=== PATIENT | male | born 1950 | race Hispanic/Latino ===

== ENCOUNTER 2016-10-25 18:26 | Inpatient (IN) | payer MEDICARE ==
[2016-10-25 18:48] VITALS: BMI 30.8
[2016-10-25] MEDS ORDERED: Eptifibatide 0.75 mg/ml 75 MG/100 ML BOTTLE IV ONE (18:51)
[2016-10-25] MEDS ORDERED: Morphine 2 mg/ml ISec IVP STA (18:52)
[2016-10-25 19:01] LABS: ADD MANUAL DIFF? NO
[2016-10-25 19:05] LABS: BASO # 0.02 K/mm3 (0.0-2.0); BASO % 0.3 % (0.0-3.0); EOS # 0.1 (0.0-0.7); EOS % 1.1 % (1.5-5.0); GRAN # 4.99 (1.4-6.5); GRAN % 63.6 % (50.0-68.0); HEMATOCRIT 49.7 % (42.0-52.0); LYMPH # 2.1 (1.2-3.4); LYMPH % 26.5 % (22.0-35.0); MEAN CELL VOLUME 87.8 fL (80.0-105.0); MEAN CORPUSCULAR HEMOGLOBIN 32.3 pg (25.0-35.0); MEAN CORPUSCULAR HGB CONC 36.8 g/dl (31.0-37.0); MONO # 0.7 (0.1-0.6); MONO % 8.5 % (1.0-6.0); PLATELET COUNT 241 10^3/uL (120.0-450.0); RED CELL DISTRIBUTION WIDTH 12.9 % (11.5-14.5); WHITE BLOOD COUNT 7.9 10^3/ul (4.5-11.0)
[2016-10-25] MEDS ORDERED: Phenylephrine 10 mg/ml Inj ONE (19:05)
[2016-10-25] MEDS ORDERED: Lidocaine 2% Inj (20ml) ONE (19:05)
[2016-10-25] MEDS ORDERED: Midazolam 2 MG/2 ML VIAL ONE ×2 (19:06→19:28)
[2016-10-25] MEDS ORDERED: Iohexol 350mgl/ml 50 ML ONE (19:07)
[2016-10-25] MEDS ORDERED: Iodixanol 320 MG/ML 200 ML BOTTLE IV ONE (19:07)
[2016-10-25] MEDS ORDERED: Iodixanol 320 MG/ML 100 ML BOTTLE IV ONE (19:07)
[2016-10-25] MEDS ORDERED: Nitroglycerin 50mg in D5W 0 MG/0 ML BOTTLE IV ONE (19:07)
[2016-10-25 19:10] LABS: ALB/GLOB RATIO 1.2 (1.1-1.8); ALKALINE PHOSPHATASE 122 U/L (38-133); ALT/SGPT 131 U/L (7-56); AST/SGOT 66 U/L (15-59); BILIRUBIN,TOTAL 1.2 mg/dL (0.2-1.3); BLOOD UREA NITROGEN 16 mg/dL (7-21); CALCIUM 9.8 mg/dL (8.4-10.5); CARBON DIOXIDE 22 mmol/L (21-33); CHLORIDE 103 mmol/L (98-107); GFR AFRICAN-AMERICAN > 60; GLUCOSE,RANDOM 155 mg/dL (70-110); POTASSIUM 3.2 mmol/L (3.6-5.0); SODIUM 141 mmol/L (132-148); TOTAL PROTEIN 9.4 g/dL (5.8-8.3)
[2016-10-25 19:17] LABS: INR 0.99 (0.93-1.08)
--- NOTE | 2016-10-25 19:19 | ED PDOC ---
Arrival/HPI - General Chief Complaint: Chest Pain Time Seen by Provider: 10/25/16 18:49 Historian: Patient - History of Present Illness Narrative History of Present Illness (Text): 10/25/16 18:50 A 66 year old male, who denies any past cardiac history, presents to the emergency department complaining of substernal chest heaviness that began around 16:30 this afternoon. Patient describes heaviness as "someone is sitting on top of my chest." Patient reports he has some chest pain yesterday afternoon after eating a pizza, which he thought was do to indigestion. Pain went away after some time. He then noticed some chest tightness when he was walking, which went away when he stopped. Throughout the night patient says he was fine and did not have any chest pain. This morning patient went to clean his car and while doing so he began to feel chest tightness and shortness of breath. Patient pain went away once he stopped cleaning the car. Patient states chest tightness began again when going up to stairs but then went away again. He reports around 16:30 while sitting on the couch the pain returned again did not resolve. PMD: Dr. Hand 11/02/16 17:01 Time/Duration: 24 hours Symptom Onset: Sudden Symptom Course: Intermittent Quality: Tightness, Other (heaviness) Severity Level: 10 Activities at Onset: Rest, Light Context: Sitting, Exertion, Home Past Medical History - Provider Review Nursing Documentation Reviewed: Yes - Infectious Disease Hx of Infectious Diseases: None - Tetanus Immunization Tetanus Immunization: Unknown - Cardiac Hx Cardiac Disorders: Yes Hx Hypertension: Yes - Pulmonary Hx Respiratory Disorders: No - Neurological Hx Neurological Disorder: No - HEENT Hx HEENT Disorder: Yes Other/Comment: blurred vision - Renal Hx Renal Disorder: No - Endocrine/Metabolic Hx Endocrine Disorders: No - Hematological/Oncological Hx Blood Disorders: No - Integumentary Hx Dermatological Disorder: No - Musculoskeletal/Rheumatological Hx Musculoskeletal Disorders: No - Gastrointestinal Hx Gastrointestinal Disorders: No - Genitourinary/Gynecological Hx Genitourinary Disorders: No - Psychiatric Hx Psychophysiologic Disorder: Yes Hx Anxiety: Yes Hx Depression: Yes Hx Emotional Abuse: No Hx Physical Abuse: No Hx Sexual Abuse: No Hx Substance Use: No - Past Surgical History Past Surgical History: Unable to Obtain - Surgical History Hx Orthopedic Surgery: Yes (right knee) - Anesthesia Hx Anesthesia: Yes Hx Anesthesia Reactions: No Hx Malignant Hyperthermia: No - Suicidal Assessment Feels Threatened In Home Enviroment: No Family/Social History - Physician Review Nursing Documentation Reviewed: Yes Family/Social History: Unknown Family HX Smoking Status: Never Smoked Hx Alcohol Use: No Hx Substance Use: No Hx Substance Use Treatment: No Allergies/Home Meds Allergies/Adverse Reactions: Allergies egg Allergy (Verified 10/25/16 18:48) VOMITING Home Medications: Home Meds Medication Instructions Recorded Confirmed Levomefolate/B6/B12/Algal Oil 1 cap PO BID 10/25/16 10/25/16 [Metanx Capsule] Zonisamide 4 tab PO HS 10/25/16 10/25/16 clonazePAM [Klonopin] 1 mg PO DAILY 10/25/16 10/25/16 Review of Systems - Review of Systems Constitutional: absent: Fevers Eyes: absent: Vision Changes ENT: absent: Sore Throat Respiratory: SOB Cardiovascular: Chest Pain, GRAJEDA Gastrointestinal: absent: Abdominal Pain Genitourinary Male: absent: Dysuria Musculoskeletal: Back Pain. absent: Neck Pain Skin: absent: Rash Neurological: absent: Headache, Dizziness Endocrine: absent: Polyuria Hemo/Lymphatic: absent: Easy Bleeding Psychiatric: absent: Depression Physical Exam - Physical Exam Narrative Physical Exam (Text): Head: Atraumatic. Normocephalic. Eyes: PERRL. EOMI. Conjunctivae are not pale. ENT: Mucous membranes are moist and intact. Oropharynx is clear and symmetric. Neck: Supple. Full ROM. No JVD. No lymphadenopathy. Cardiovascular: Regular rate. Regular rhythm with intermittent premature beats / No murmurs, rubs, or gallops. Strong bilateral upper extremity pulses. Pulmonary/Chest: Tachypneic. No wheezes or rales. Abdominal: Soft and non-distended. No epigastric pain. No pulsatile masses. There is no tenderness. No rebound, guarding, or rigidity. No organomegaly. Good bowel sounds. No pustule mass Back: No CVA tenderness. Lower lumbar paraspinal pain. Midscapular pain to palpation. Rectal: No gross blood Extremities: No edema. No cyanosis. No clubbing. Full range of motion in all extremities. No calf tenderness. Old surgical scar to the right knee. Strong and symmetric pulses to both upper extremities. Skin: Diaphoretic. Pale. Neurological: Alert, awake, and oriented to person, place, time, and situation. Normal speech. Motor and sensory exam intact. No meingeal signs. Psychiatric: Good eye contact. Anxious. Severe pain. Vital Signs Reviewed: Yes Vital Signs Temp Pulse Resp BP Pulse Ox 10/25/16 19:02 92 H 20 138/96 H 99 10/25/16 18:49 98 F 90 20 189/102 H 100 Temperature: Afebrile Blood Pressure: Hypertensive Pulse: Regular Respiratory Rate: Normal Appearance: Positive for: Ill-Appearing, Uncomfortable Pain Distress: Severe Mental Status: Positive for: Alert and Oriented X 3 Medical Decision Making ED Course and Treatment: 10/25/16 18:50 EKG was presented to me at 18:43 and Code Heart was called after receiving EKG and interviewing the patient. EKG reveal 3-4mm ST elevation in the anterior leads. Patient denies taking blood thinner or history of bleeding disorders. Pulses equal in both upper extremities. Prior CT chest reviewed, no history of aneurysm noted. CXR no pneumothorax. Case reviewed with Dr. Jean. Patient given Aspirin, Plavix, Integrilin and Morphine given. Patient reports after Morphine pain improved from a 10/10 to a 5 /10. Dr. Hand updated about history and abnormal EKG. Patient admitted to the equipment operator/laborer. I have discussed the results and plan with the patient, who expresses understanding. Patient given the opportunity to ask question, all questions were answered and there is agreement with the plan to be admitted to the hospital. Reassessment Condition: Improving,but remains with symptoms - Critical Care Critical Care Minutes: 30 minutes - Lab Interpretations Lab Results: 10/25/16 18:30 10/25/16 18:30 Lab Results 10/25/16 18:30: Sodium 141, Potassium 3.2 L, Chloride 103, Carbon Dioxide 22, Anion Gap 19, BUN 16, Creatinine 1.0, Est GFR ( Amer) > 60, Est GFR (Non- Af Amer) > 60, Random Glucose 155 H, Calcium 9.8, Total Bilirubin 1.2, AST 66 H , ALT 131 H, Alkaline Phosphatase 122, Lactate Dehydrogenase 564, Total Creatine Kinase 68, Troponin I 0.22 H*, Total Protein 9.4 H, Albumin 5.1 H, Globulin 4.3, Albumin/Globulin Ratio 1.2 10/25/16 18:30: PT 10.7, INR 0.99 10/25/16 18:30: WBC 7.9 D, RBC 5.66, Hgb 18.3 H* D, Hct 49.7, MCV 87.8, MCH 32.3, MCHC 36.8, RDW 12.9, Plt Count 241, MPV 11.0, Gran % 63.6, Lymph % (Auto) 26.5, [place] % (Auto) 8.5 H, Eos % (Auto) 1.1 L, Baso % (Auto) 0.3, Gran # 4.99, Lymph # 2.1, [place] # 0.7 H, Eos # 0.1, Baso # 0.02 I have reviewed the lab results: Yes - RAD Interpretation Radiology Orders: 10/25/16 18:50 CHEST PORTABLE [RAD] Stat - Medication Orders Current Medication Orders: Discontinued Medications Aspirin (Aspirin) 325 mg PO STAT STA Stop: 10/25/16 18:51 Last Admin: 10/25/16 18:53 Dose: 163 mg Comments: pt took 2 81mg prior to arrival Aspirin (Ecotrin) 81 mg PO DAILY [facility] Last Admin: 10/26/16 10:59 Dose: 81 mg Atorvastatin Calcium (Lipitor) 40 mg PO DIN [facility] Last Admin: 10/26/16 18:12 Dose: 40 mg Atropine Sulfate (Atropine) Confirm Administered Dose 1 mg .ROUTE .STK-MED ONE Stop: 10/25/16 19:05 Last Admin: 10/25/16 20:20 Dose: Camphor/Menthol (Bengay) 0.5 gm TOP BID [facility] Last Admin: 10/27/16 10:28 Dose: Not Given Non-Admin Reason: Patient in Cardiology Clopidogrel Bisulfate (Plavix) 600 mg PO STAT STA Stop: 10/25/16 18:51 Last Admin: 10/25/16 18:53 Dose: 600 mg Clopidogrel Bisulfate (Plavix) Confirm Administered Dose 600 mg .ROUTE .STK-MED ONE Stop: 10/25/16 18:52 Last Admin: 10/25/16 23:43 Dose: Clopidogrel Bisulfate (Plavix) 75 mg PO DAILY [facility] Last Admin: 10/26/16 10:59 Dose: 75 mg Famotidine (Pepcid) 20 mg PO 1000,2200 [facility] Last Admin: 10/26/16 23:09 Dose: 20 mg Fentanyl (Fentanyl) Confirm Administered Dose 100 mcg .ROUTE .STK-MED ONE Stop: 10/25/16 19:07 Last Admin: 10/25/16 19:34 Dose: 100 mcg Comments: IV. 50 mcg @ [address] Jean. 50 mcg @ [address] Jean Heparin Sodium (Porcine) (Heparin) Confirm Administered Dose 10,000 units .ROUTE .STK-MED ONE Stop: 10/25/16 19:06 Last Admin: 10/25/16 19:35 Dose: 5,000 units Comments: IV per Dr. Jean. 4000 units @ 1935 and 1000 units @ 1945 Eptifibatide (Integrilin) Confirm Administered Dose 75 mg in 100 mls @ ud IV .STK-MED ONE Stop: 10/25/16 18:52 Last Admin: 10/25/16 23:43 Dose: Nitroglycerin/Dextrose (Nitroglycerin 50 Mg/250 Ml D5w) Confirm Administered Dose 50 mg in 250 mls @ ud IV .STK-MED ONE Stop: 10/25/16 19:08 Last Admin: 10/25/16 20:23 Dose: Heparin Sodium (Porcine) (Heparin 1000 Units/500 Ml Ns) Confirm Administered Dose 1,500 mls @ ud IV .STK-MED ONE Stop: 10/25/16 19:09 Eptifibatide (Integrilin) 75 mg in 100 mls @ 16.982 mls/hr IV .Q5H54M [facility]; 2 MCG/KG/MIN PRN Reason: Protocol Last Admin: 10/26/16 08:00 Dose: 16.982 mls/hr Sodium Chloride (Sodium Chloride 0.9%) 1,000 mls @ 100 mls/hr IV .Q10H [facility] Stop: 10/26/16 01:00 Last Admin: 10/25/16 21:15 Dose: 100 mls/hr Iodixanol (Visipaque 320 Mg/Ml 100 Ml) Confirm Administered Dose 100 ml IV .STK- MED ONE Stop: 10/25/16 19:08 Last Admin: 10/25/16 19:34 Dose: 100 ml Comments: During cath Iodixanol (Visipaque 320 Mg/Ml 200 Ml) Confirm Administered Dose 200 ml IV .STK- MED ONE Stop: 10/25/16 19:08 Last Admin: 10/25/16 19:34 Dose: 200 ml Comments: During cath Iohexol (Omnipaque 350mg/Ml 50 Ml) Confirm Administered Dose 50 ml .ROUTE .STK- MED ONE Stop: 10/25/16 19:08 Last Admin: 10/25/16 19:34 Dose: 50 ml Comments: During cath Lidocaine HCl (Lidocaine 2% 20ml Vial) Confirm Administered Dose 20 ml .ROUTE .STK-MED ONE Stop: 10/25/16 19:06 Last Admin: 10/25/16 19:34 Dose: 8 ml Comments: SC into right groin by Dr. Jean Metoprolol Tartrate (Lopressor) 25 mg PO BID [facility] Last Admin: 10/26/16 18:12 Dose: Not Given Non-Admin Reason: BP Parameters Not Met Midazolam HCl (Versed Inj) Confirm Administered Dose 2 mg .ROUTE .STK-MED ONE Stop: 10/25/16 19:07 Last Admin: 10/25/16 19:34 Dose: 2 mg Comments: IV by Dr. Jean Midazolam HCl (Versed Inj) Confirm Administered Dose 2 mg .ROUTE .STK-MED ONE Stop: 10/25/16 19:29 Last Admin: 10/25/16 19:35 Dose: 1 mg Comments: IV per Dr. Jean Morphine Sulfate (Morphine) 2 mg IVP STAT STA Stop: 10/25/16 18:53 Last Admin: 10/25/16 21:58 Dose: 2 mg Morphine Sulfate (Morphine) Confirm Administered Dose 2 mg .ROUTE .STK-MED ONE Stop: 10/25/16 19:35 Last Admin: 10/25/16 19:37 Dose: 2 mg Comments: IV per Dr. Jean Morphine Sulfate (Morphine) 2 mg IVP ONCE ONE Stop: 10/25/16 21:33 Last Admin: 10/25/16 21:40 Dose: 2 mg Nitroglycerin (Nitrostat Sl Tab) Confirm Administered Dose 0.3 mg SL .STK-MED ONE Stop: 10/25/16 19:12 Last Admin: 10/25/16 19:12 Dose: 0.3 mg Phenylephrine HCl (Phenylephrine Inj) Confirm Administered Dose 10 mg .ROUTE .STK-MED ONE Stop: 10/25/16 19:06 Last Admin: 10/25/16 20:23 Dose: Potassium Chloride (K-Dur 20 Meq Er Tab) Confirm Administered Dose 20 meq PO .STK-MED ONE Stop: 10/25/16 19:42 Last Admin: 10/25/16 19:42 Dose: 20 meq Comments: PO per Dr. Jean Potassium Chloride (Klor-Con 10) 10 meq PO BRK [facility] Potassium Chloride (Klor-Con 10) 10 meq PO ONCE ONE Stop: 10/25/16 22:24 Last Admin: 10/25/16 22:36 Dose: 10 meq Potassium Chloride (Potassium Chloride Oral Soln) 20 meq PO STAT ST[facility] Stop: 10/27/16 10:38 Zolpidem Tartrate (Ambien) 5 mg PO HS PRN; Protocol PRN Reason: Insomnia Last Admin: 10/26/16 23:08 Dose: 5 mg - Scribe Statement The provider has reviewed the documentation as recorded by the Edson Pham Provider Scribe Attestation: All medical record entries made by the Scribe were at my direction and personally dictated by me. I have reviewed the chart and agree that the record accurately reflects my personal performance of the history, physical exam, medical decision making, and the department course for this patient. I have also personally directed, reviewed, and agree with the discharge instructions and disposition. Disposition/Present on Arrival - Present on Arrival Any Indicators Present on Arrival: No History of DVT/PE: No History of Uncontrolled Diabetes: No Urinary Catheter: No History of Decub. Ulcer: No History Surgical Site Infection Following: None - Disposition Have Diagnosis and Disposition been Completed?: Yes Diagnosis: Myocardial infarction Disposition: HOSPITALIZED Disposition Time: 18:50 Patient Plan: Admission Condition: CRITICAL
[2016-10-25 19:23] LABS: TROPONIN I 0.22 ng/mL
[2016-10-25] MEDS ORDERED: Morphine 2 mg/ml ISec ONE (19:34)
[2016-10-25] MEDS ORDERED: Potassium Chloride 20 mEq ER Tab PO ONE (19:41)
[2016-10-25] MEDS ORDERED: Sodium Chloride 0.9% 1,000 ML IV SCH (20:15)
--- NOTE | 2016-10-25 20:40 | CP.PCM.PN ---
Subjective - Date & Time of Evaluation Date of Evaluation: 10/25/16 Time of Evaluation: 20:38 - Subjective Subjective: Stayed with patient while being transported to ship laborer from ER and in the ship laborer until procedure was completed. Objective - Vital Signs/Intake and Output Vital Signs (last 24 hours): Temp Pulse Resp BP Pulse Ox 98 F 92 H 20 138/96 H 99 10/25/16 18:49 10/25/16 19:02 10/25/16 19:02 10/25/16 19:02 10/25/16 19:02 - Medications Medications: Current Medications Aspirin (Ecotrin) 81 mg PO DAILY [facility] Atorvastatin Calcium (Lipitor) 40 mg PO DIN [facility] Clopidogrel Bisulfate (Plavix) 75 mg PO DAILY [facility] Eptifibatide (Integrilin) 75 mg in 100 mls @ 16.982 mls/hr IV .Q5H54M [facility]; 2 MCG/KG/MIN PRN Reason: Protocol Sodium Chloride (Sodium Chloride 0.9%) 1,000 mls @ 100 mls/hr IV .Q10H [facility] Stop: 10/26/16 01:00 Metoprolol Tartrate (Lopressor) 25 mg PO BID [facility] - Labs Labs: PT 10.7 Seconds (9.9-11.8) 10/25/16 18:30 INR 0.99 (0.93-1.08) 10/25/16 18:30
[2016-10-25 21:06] LABS: HEMATOCRIT 44.9 % (42.0-52.0); MEAN CELL VOLUME 87.5 fL (80.0-105.0); MEAN CORPUSCULAR HEMOGLOBIN 32.4 pg (25.0-35.0); MEAN PLATELET VOLUME 10.8 fl (7.0-11.0); RED CELL DISTRIBUTION WIDTH 12.8 % (11.5-14.5); WHITE BLOOD COUNT 10.9 10^3/ul (4.5-11.0)
--- NOTE | 2016-10-25 21:14 | CP.PCM.CON ---
Addendum entered and electronically signed by Navi Ortiz DO 10/26/16 02: 41: ICU NIGHT RESIDENT CONSULT NOTE Original Note: <Navi Ortiz - Last Filed: 10/25/16 23:33> History of Present Illness - History of Present Illness History of Present Illness: CC: "Chest pain" HPI: Pt is a 66 year old male with a PMHx peripheral neuropathy, spinal stenosis, arthritis, anxiety/depression, and HTN who presented to the ED with complaints of sudden, sharp chest pain. Pt presented with STEMI and was transferred to label folder for PCI. PT was seen and evaluated in the ICU following catheterization. Pt reports that he had some pain in his lower chest yesterday, which he reports felt like indigestion. Pt reports that this morning he felt the pain again in the morning and then it subsided. He reports that about 6 hours ago, in the afternoon, the pain came back very sharp when he was sitting on the couch. He reports that he felt pain in between his shoulder blades and down his left arm. He reports that he still feels the pain in his chest. Pt also reports that he felt short of breath. Pt denies fever, chills, nausea, vomiting. PMHx: Peripheral neuropathy, spinal stenosis, arthritis, anxiety/depression, and HTN Home medications: Amlodipine 10 mg po qd, cymbalta 60 mg po qd, remeron 30 mg po hs, metanx 1 cap bid, zonisamide 25 mg 4 tab po hs, klonopin 1 mg po qd Allergies: NKDA Past Surgical Hx: Right knee surgery x3 Social Hx: reports he quit smoking 40 yrs ago, denies alcohol use, denies drug use Fam Hx: DE in father at age 90, CVA (mother at age 85), no hx of young MIs Review of Systems - Constitutional Constitutional: absent: Chills, Fever - EENT Eyes: absent: Change in Vision Ears: absent: Dizziness Nose/Mouth/Throat: absent: Epistaxis, Nasal Congestion - Cardiovascular Cardiovascular: Chest Pain, Chest Pain at Rest, Diaphoresis. absent: Dyspnea - Respiratory Respiratory: absent: Cough, Wheezing - Gastrointestinal Gastrointestinal: absent: Abdominal Pain, Constipation, Diarrhea, Dyspepsia - Genitourinary Genitourinary: absent: Dysuria - Musculoskeletal Musculoskeletal: absent: Atrophy - Neurological Neurological: absent: Dizziness, Headaches - Psychiatric Psychiatric: Abnormal Sleep Pattern - Hematologic/Lymphatic Hematologic: absent: Easy Bleeding Past Patient History - Infectious Disease Hx of Infectious Diseases: None - Tetanus Immunizations Tetanus Immunization: Unknown - Past Social History Smoking Status: Never Smoked - CARDIAC Hx Cardiac Disorders: Yes Hx Hypertension: Yes - PULMONARY Hx Respiratory Disorders: No - NEUROLOGICAL Hx Neurological Disorder: No - HEENT Hx HEENT Problems: Yes Other/Comment: blurred vision - RENAL Hx Chronic Kidney Disease: No - ENDOCRINE/METABOLIC Hx Endocrine Disorders: No - HEMATOLOGICAL/ONCOLOGICAL Hx Blood Disorders: No - INTEGUMENTARY Hx Dermatological Problems: No - MUSCULOSKELETAL/RHEUMATOLOGICAL Hx Musculoskeletal Disorders: No - GASTROINTESTINAL Hx Gastrointestinal Disorders: No - GENITOURINARY/GYNECOLOGICAL Hx Genitourinary Disorders: No - PSYCHIATRIC Hx Psychophysiologic Disorder: Yes Hx Anxiety: Yes Hx Depression: Yes Hx Emotional Abuse: No Hx Physical Abuse: No Hx Sexual Abuse: No Hx Substance Use: No - SURGICAL HISTORY Hx Orthopedic Surgery: Yes (right knee) - ANESTHESIA Hx Anesthesia: Yes Hx Anesthesia Reactions: No Hx Malignant Hyperthermia: No Meds Allergies/Adverse Reactions: Allergies Allergy/AdvReac Type Severity Reaction Status Date / Time egg Allergy VOMITING Verified 10/25/16 18:48 - Medications Medications: Current Medications Aspirin (Ecotrin) 81 mg PO DAILY [facility] Atorvastatin Calcium (Lipitor) 40 mg PO DIN [facility] Clopidogrel Bisulfate (Plavix) 75 mg PO DAILY [facility] Eptifibatide (Integrilin) 75 mg in 100 mls @ 16.982 mls/hr IV .Q5H54M [facility]; 2 MCG/KG/MIN PRN Reason: Protocol Sodium Chloride (Sodium Chloride 0.9%) 1,000 mls @ 100 mls/hr IV .Q10H [facility] Stop: 10/26/16 01:00 Metoprolol Tartrate (Lopressor) 25 mg PO BID [facility] Potassium Chloride (Klor-Con 10) 10 meq PO BRK [facility] Physical Exam - Constitutional Appears: No Acute Distress - Head Exam Head Exam: ATRAUMATIC, NORMOCEPHALIC - Eye Exam Eye Exam: EOMI, PERRL Pupil Exam: PERRL - ENT Exam ENT Exam: Mucous Membranes Moist - Respiratory Exam Respiratory Exam: Clear to Auscultation Bilateral. absent: Rales, Rhonchi, Wheezes - Cardiovascular Exam Cardiovascular Exam: +S1, +S2 - GI/Abdominal Exam GI & Abdominal Exam: Normal Bowel Sounds, Soft. absent: Tenderness - Extremities Exam Extremities exam: Positive for: full ROM. Negative for: pedal edema - Neurological Exam Neurological exam: Alert, Oriented x3 - Psychiatric Exam Psychiatric exam: Normal Affect, Normal Mood - Skin Skin Exam: Normal Color, Warm Results - Vital Signs Recent Vital Signs: Last Vital Signs Temp 98 F 10/25/16 18:49 Pulse 92 H 10/25/16 19:02 Resp 20 10/25/16 19:02 BP 138/96 H 10/25/16 19:02 Pulse Ox 99 10/25/16 19:02 - Labs Result Diagrams: 10/25/16 21:04 10/25/16 21:04 Assessment & Plan - Assessment and Plan (Free Text) Assessment: ST elevation Myocardial Infarction: CODE HEART CALLED in ED at 18:47 EKG - revealed lateral wall infarct (please see full report) Cardiology, Dr. Jean, consulted. Help appreciated. Troponin x 1- 0.22 Pt taken to cardiac catherization lab Eptifibatide drip Aspirin 81 mg po qd Plavix 75 mg po qd Lopressor 25 mg po bid Lipitor 40 mg po qd NS IVF 100 cc/hr All medications as per cardiology Hypokalemia: K-3.2 K-dur 10 meq ashley as per cardio Depression/Anxiety: Home medications held HTN: Takes amlodipine 2.5 mg po qd at home, currently held Prophylactic Measures: GI: Protonix 40 mg po qd DVT: SCDs, integrillin drip <Marlen TAVARES,Catrachito - Last Filed: 11/01/16 04:52> Results - Vital Signs Recent Vital Signs: Last Vital Signs Temp 98.5 F 10/27/16 12:00 Pulse 76 10/27/16 12:00 Resp 20 10/27/16 12:00 BP 140/81 10/27/16 12:00 Pulse Ox 96 10/27/16 06:00 - Labs Result Diagrams: 10/27/16 06:30 10/27/16 06:30 Attending/Attestation - Attestation I have personally seen and examined this patient.: Yes I have fully participated in the care of the patient.: Yes I have reviewed all pertinent clinical information: Yes
[2016-10-25] MEDS: Eptifibatide 0.75 mg/ml 75 MG/100 ML BOTTLE IV SCH (21:15)
[2016-10-25 21:25] LABS: BLOOD UREA NITROGEN 15 mg/dL (7-21); CALCIUM 8.4 mg/dL (8.4-10.5); CARBON DIOXIDE 22 mmol/L (21-33); CHLORIDE 104 mmol/L (98-107); GFR AFRICAN-AMERICAN > 60; GLUCOSE,RANDOM 144 mg/dL (70-110); MAGNESIUM 2.1 mg/dL (1.7-2.2); POTASSIUM 3.5 mmol/L (3.6-5.0); SODIUM 138 mmol/L (132-148)
[2016-10-25] MEDS ORDERED: Morphine 2 mg/ml ISec IVP ONE (21:32)
[2016-10-25] MEDS ORDERED: Potassium Chloride 10 mEq ER Tab PO ONE (22:23)
--- NOTE | 2016-10-25 23:09 | CARDCATH ---
PROCEDURE DATE: 10/25/2016 HISTORY: The patient is a 66-year-old male who has been experiencing exertional angina over the past several days. At approximately 5:00 today, he developed crushing chest pain which radiated to the back. EKG was co nsistent with anterior wall MN. The patient was brought up to the union laborer under emergency conditions. PROCEDURE: Emergency cardiac catheterization and PTCA and stent. The right femoral artery was cannulated with a 6-Irish sheath. There were no complications. The patient was pretreated with aspirin and Plavix in the Emergency Room, as well as intravenous Inte grilin. Under fluoroscopic guide, the right coronary artery was visualized and found to be a dominant vessel. The RCA revealed a 30% to 40% stenosis in the mid portion. The left main artery was unremarkable. The LAD revealed a 99% stenosis just after the takeoff of the septal machine whitener. The diagonal vessels revealed intimal irregularities without significant stenosis. The circumflex artery and obtuse marginal branches revealed intimal irregularities without significan t stenosis. Left ventriculogram revealed mild apical hypokinesis with an ejection fraction of approximately 50%. The patient was given 4000 units of intravenous heparin, which resulted in an ACT of 190. An additio nal 1000 units of heparin was given. Under fluoroscopic guide, the guiding catheter was placed in the ostium of the left main artery. An 0.014 ATW wire was used to cross the critical lesion. A 2.0 balloon was utilized to predilate the lesion. A 3.5 mm x 15 mm drug-eluting stent was placed and employed at 12 atmospheres of pressure. [facility] excellent result with a resultant JOHN 3 flow versus JOHN 2 flow prepr ocedure. There was no residual stenosis. Angio-Seal was used to close the femoral artery site. The patient tolerated the procedure well. SUMMARY: The procedure was successful for an emergency PTCA and stent of a 99% LAD lesion with a irckey g-eluting stent. Cardiac catheterization reveals single vessel coronary artery disease with mild apical hypokinesis. PLAN: Given these findings, the patient will remain on Integrilin for the next 18 hours. Aspirin an d Plavix, as well as statin therapy and beta blockers have been ordered. Kiran Jean MD cc: [id number] TT: 10/25/2016 23:09:07 mn
[2016-10-26] MEDS: Eptifibatide 0.75 mg/ml 75 MG/100 ML BOTTLE IV SCH ×2 (02:30→08:00)
[2016-10-26 06:27] LABS: ADD MANUAL DIFF? NO
[2016-10-26] MEDS ORDERED: Pantoprazole 40 mg EC Tab PO SCH (06:30)
[2016-10-26 06:39] LABS: BASO # 0.02 K/mm3 (0.0-2.0); BASO % 0.2 % (0.0-3.0); EOS # 0.1 (0.0-0.7); EOS % 0.7 % (1.5-5.0); GRAN # 6.22 (1.4-6.5); GRAN % 69.2 % (50.0-68.0); HEMATOCRIT 44.7 % (42.0-52.0); LYMPH % 22.4 % (22.0-35.0); MEAN CELL VOLUME 89.2 fL (80.0-105.0); MEAN CORPUSCULAR HEMOGLOBIN 31.9 pg (25.0-35.0); MEAN CORPUSCULAR HGB CONC 35.8 g/dl (31.0-37.0); MEAN PLATELET VOLUME 10.8 fl (7.0-11.0); MONO # 0.7 (0.1-0.6); MONO % 7.5 % (1.0-6.0); PLATELET COUNT 227 10^3/uL (120.0-450.0); RED CELL DISTRIBUTION WIDTH 13.3 % (11.5-14.5)
[2016-10-26 07:00] LABS: BLOOD UREA NITROGEN 14 mg/dL (7-21); CALCIUM 8.2 mg/dL (8.4-10.5); CARBON DIOXIDE 26 mmol/L (21-33); CHLORIDE 107 mmol/L (98-107); GFR AFRICAN-AMERICAN > 60; GLUCOSE,RANDOM 126 mg/dL (70-110); POTASSIUM 3.9 mmol/L (3.6-5.0); SODIUM 139 mmol/L (132-148)
[2016-10-26] MEDS ORDERED: Potassium Chloride 10 mEq ER Tab PO SCH (08:00)
--- NOTE | 2016-10-26 08:22 | RAD ---
HISTORY: chest pain COMPARISON: 12/24/2014 FINDINGS: LUNGS: No active pulmonary disease. PLEURA: No significant pleural effusion identified, no pneumothorax apparent. CARDIOVASCULAR: Mild cardiomegaly OSSEOUS STRUCTURES: No significant abnormalities. VISUALIZED UPPER ABDOMEN: Normal. OTHER FINDINGS: None. IMPRESSION: No active disease.
--- NOTE | 2016-10-26 09:21 | PN ---
DATE: 10/26/2016 The patient is chest pain free. PHYSICAL EXAMINATION: VITAL SIGNS: Blood pressure is 139/85. NECK: Negative JVD. LUNGS: Without rales. HEART: Reveals S1, S2. EXTREMITIES: The right groin site reveals mild ecchymosis. LABORATORIES: Troponin is 0.22. Glucose is 126, potassium is 3.9 with a magnesium of 2.1 last night. The hemoglobin is 16. IMPRESSION: 1. Status post anterior wall myocardial infarction. 2. Status post emergency percutaneous transluminal coronary angioplasty and stent of a subtotally occluded left anterior descending. 3. Hypercholesterolemia. 4. Premature ventricular contractions, including a nonsustained ventricular tachycardia, which may represent reperfusion arrhythmias. PLAN: Given these findings, we will continue the Integrilin for the full 18 hours. I have discussed with the patient about the need for monitoring of the electrolytes as well as arrhythmias before discharge. Kiran Jean MD cc: [id number] TT: 10/26/2016 09:20:40 Confirmation # [id number] Dictation # [id number] romina HORNER
--- NOTE | 2016-10-26 09:52 | CP.CCUPN ---
<Parsia Chu - Last Filed: 10/26/16 12:53> CCU Subjective - Physician Review Events Since Last Encounter (Free Text): 10/26/16 09:51 No active complain. No CP, sob, abdominal pain. 10/26/16 12:47 nose bleed when blowing nose. stop bleeding spontaneously. No Dizziness, CP, SOB , palpitation, numb/tingle. 10/26/16 12:51 Monitor showed occasinal PVCs. No V-tach this late AM. CCU Objective - Vital Signs / Intake & Output Vital Signs (Last 4 hours): Vital Signs Temp 10/26/16 06:20 98.8 F Intake and Output (Last 8hrs): Intake & Output 10/25/16 10/26/16 10/26/16 22:59 06:59 14:59 Intake Total 1200 Output Total 900 Balance 300 Intake: IV 1000 Right Antecubital 1000 Oral 200 Output: Urine 900 Urine, Voided 900 Stool 0 Other: # Bowel Movements 0 - Physical Exam Head: Positive for: Atraumatic, Normocephalic Pupils: Positive for: PERRL Extroacular Muscles: Positive for: EOMI Conjunctiva: Positive for: Normal Mouth: Positive for: Moist Mucous Membranes Respiratory/Chest: Positive for: Clear to Auscultation, Rhonchi (lung bases) Cardiovascular: Positive for: Regular Rate and Rhythm, Normal S1, S2, Bradycardic Abdomen: Positive for: Normal Bowel Sounds. Negative for: Tenderness, Distention, Peritoneal Signs Upper Extremity: Positive for: Normal Inspection Lower Extremity: Positive for: Normal Inspection (R femeral cath site dressing d /c/i) Neurological: Positive for: GCS=15, CN II-XII Intact, Speech Normal, Motor Func Grossly Intact Skin: Positive for: Warm, Dry Psychiatric: Positive for: Alert, Oriented x 3 - Medications Active Medications: Active Medications Generic Name Dose Route Start Last Admin Trade Name Freq PRN Reason Stop Dose Admin Aspirin 81 mg 10/26/16 10:00 Ecotrin PO DAILY PAVEL Atorvastatin Calcium 40 mg 10/25/16 20:15 10/25/16 21:15 Lipitor PO 40 mg DIN PAVEL Administration Camphor/Menthol 0.5 gm 10/26/16 10:00 Bengay TOP BID PAVEL Clopidogrel Bisulfate 75 mg 10/26/16 10:00 Plavix PO DAILY [facility] Eptifibatide 75 mg in 100 mls @ 16.982 mls/hr 10/25/16 20:15 10/26/16 02:30 Integrilin IV 16.982 mls/hr .Q5H54M PAVEL Administration Protocol 2 MCG/KG/MIN Metoprolol Tartrate 25 mg 10/25/16 20:15 10/25/16 21:15 Lopressor PO 25 mg BID PAVEL Administration Zolpidem Tartrate 5 mg 10/25/16 21:51 10/25/16 22:36 Ambien PO 5 mg HS PRN Administration Insomnia Protocol - Patient Studies Lab Studies: Lab Studies 10/26/16 10/26/16 10/25/16 Range/Units 06:00 06:00 21:04 WBC 9.0 10.9 D (4.5-11.0) 10^3/ul RBC 5.01 5.13 (3.5-6.1) 10^6/uL Hgb 16.0 16.6 (14.0-18.0) gm/dL Hct 44.7 44.9 (42.0-52.0) % MCV 89.2 87.5 (80.0-105.0) fL MCH 31.9 32.4 (25.0-35.0) pg MCHC 35.8 37.0 (31.0-37.0) g/dl RDW 13.3 12.8 (11.5-14.5) % Plt Count 227 231 (120.0-450.0) 10^3/uL MPV 10.8 10.8 (7.0-11.0) fl Gran % 69.2 H (50.0-68.0) % Lymph % (Auto) 22.4 (22.0-35.0) % [place] % (Auto) 7.5 H (1.0-6.0) % Eos % (Auto) 0.7 L (1.5-5.0) % Baso % (Auto) 0.2 (0.0-3.0) % Gran # 6.22 (1.4-6.5) Lymph # 2.0 (1.2-3.4) [place] # 0.7 H (0.1-0.6) Eos # 0.1 (0.0-0.7) Baso # 0.02 (0.0-2.0) K/mm3 Sodium 139 (132-148) mmol/L Potassium 3.9 (3.6-5.0) mmol/L Chloride 107 (98-107) mmol/L Carbon Dioxide 26 (21-33) mmol/L Anion Gap 10 (10-20) BUN 14 (7-21) mg/dL Creatinine 0.8 (0.5-1.4) mg/dL Est GFR ( Amer) > 60 Est GFR (Non-Af Amer) > 60 Random Glucose 126 H (70-110) mg/dL Calcium 8.2 L (8.4-10.5) mg/dL Magnesium (1.7-2.2) mg/dL 10/25/16 Range/Units 21:04 WBC (4.5-11.0) 10^3/ul RBC (3.5-6.1) 10^6/uL Hgb (14.0-18.0) gm/dL Hct (42.0-52.0) % MCV (80.0-105.0) fL MCH (25.0-35.0) pg MCHC (31.0-37.0) g/dl RDW (11.5-14.5) % Plt Count (120.0-450.0) 10^3/uL MPV (7.0-11.0) fl Gran % (50.0-68.0) % Lymph % (Auto) (22.0-35.0) % [place] % (Auto) (1.0-6.0) % Eos % (Auto) (1.5-5.0) % Baso % (Auto) (0.0-3.0) % Gran # (1.4-6.5) Lymph # (1.2-3.4) [place] # (0.1-0.6) Eos # (0.0-0.7) Baso # (0.0-2.0) K/mm3 Sodium 138 (132-148) mmol/L Potassium 3.5 L (3.6-5.0) mmol/L Chloride 104 (98-107) mmol/L Carbon Dioxide 22 (21-33) mmol/L Anion Gap 16 (10-20) BUN 15 (7-21) mg/dL Creatinine 0.8 (0.5-1.4) mg/dL Est GFR ( Amer) > 60 Est GFR (Non-Af Amer) > 60 Random Glucose 144 H (70-110) mg/dL Calcium 8.4 (8.4-10.5) mg/dL Magnesium 2.1 (1.7-2.2) mg/dL Laboratory Results - last 24 hr 10/25/16 10/25/16 10/26/16 21:04 21:04 06:00 WBC 10.9 D RBC 5.13 Hgb 16.6 Hct 44.9 MCV 87.5 MCH 32.4 MCHC 37.0 RDW 12.8 Plt Count 231 MPV 10.8 Gran % Lymph % (Auto) [place] % (Auto) Eos % (Auto) Baso % (Auto) Gran # Lymph # [place] # Eos # Baso # Sodium 138 139 Potassium 3.5 L 3.9 Chloride 104 107 Carbon Dioxide 22 26 Anion Gap 16 10 BUN 15 14 Creatinine 0.8 0.8 Est GFR ( Amer) > 60 > 60 Est GFR (Non-Af Amer) > 60 > 60 Random Glucose 144 H 126 H Calcium 8.4 8.2 L Magnesium 2.1 10/26/16 06:00 WBC 9.0 RBC 5.01 Hgb 16.0 Hct 44.7 MCV 89.2 MCH 31.9 MCHC 35.8 RDW 13.3 Plt Count 227 MPV 10.8 Gran % 69.2 H Lymph % (Auto) 22.4 [place] % (Auto) 7.5 H Eos % (Auto) 0.7 L Baso % (Auto) 0.2 Gran # 6.22 Lymph # 2.0 [place] # 0.7 H Eos # 0.1 Baso # 0.02 Sodium Potassium Chloride Carbon Dioxide Anion Gap BUN Creatinine Est GFR ( Amer) Est GFR (Non-Af Amer) Random Glucose Calcium Magnesium EKG/Cardiology Studies: Cardiology / EKG Studies 10/25/16 18:53 EKG [ELECTROCARDIOGRAM] Stat Comment: Reason For Exam: CARDIAC ARREST 10/26/16 08:29 EKG [ELECTROCARDIOGRAM] Stat Comment: Reason For Exam: acute mi Assessment/Plan - Assessment and Plan (Free Text) Plan: 66M with HTN, HLD, Hx angina on exertion, had anterior wall STEMI 10/25/16, s/p emergent percutanoeus transluminal coronary angioplasty with drug eluting stent on subtotally occluded LAD. RCA dominant with 30-40% stenosed. Overnight, non- sustained v-tachy and PVC, suspicicous of reperfusion arrthymia. Neuro - AAOX3 - bengay top for lower back pain - Ambien PRN Cardio - integrillin for full 18 hr. Plan to stop at 14:00 today - ASA, plavix, plavix, lopressor 25 bid, lipitor - HR occasional lamin to high 50s. Asymptpmatic - No ACEi/ARB for now - (hold home norvasc) - Pending echo Pulm - Rhonchi at lung bases, given inspiratory spirometer. Resolved upon inspiratory spirometry GI - transaminitis, no abdominal pain - Heart health diet Renal - GFR at baseline > 60 Endo - pending a1c Heme - polycythemia resolved, likely dehydration - 1 self-resolving nose bleed during integrillin gtt. Resolved. Asymptomatic ID - no active issue Prophylaxis - scd, protonix Dispositon - Downgrade to telemetry after 2pm S/R/D/w Dr. Newby - Date & Time Date: 10/26/16 Time: 09:51 <Conner Newby - Last Filed: 10/26/16 15:07> CCU Objective - Vital Signs / Intake & Output Intake and Output (Last 8hrs): Intake & Output 10/26/16 10/26/16 10/26/16 06:59 14:59 22:59 Intake Total 1200 Output Total 900 Balance 300 Intake: IV 1000 Right Antecubital 1000 Oral 200 Output: Urine 900 Urine, Voided 900 Stool 0 Other: # Bowel Movements 0 - Medications Active Medications: Active Medications Generic Name Dose Route Start Last Admin Trade Name Freq PRN Reason Stop Dose Admin Aspirin 81 mg 10/26/16 10:00 10/26/16 10:59 Ecotrin PO 81 mg DAILY PAVEL Administration Atorvastatin Calcium 40 mg 10/25/16 20:15 10/25/16 21:15 Lipitor PO 40 mg DIN PAVEL Administration Camphor/Menthol 0.5 gm 10/26/16 10:00 Bengay TOP BID PAVEL Clopidogrel Bisulfate 75 mg 10/26/16 10:00 10/26/16 10:59 Plavix PO 75 mg DAILY PAVEL Administration Eptifibatide 75 mg in 100 mls @ 16.982 mls/hr 10/25/16 20:15 10/26/16 02:30 Integrilin IV 16.982 mls/hr .Q5H54M PAVEL Administration Protocol 2 MCG/KG/MIN Metoprolol Tartrate 25 mg 10/25/16 20:15 10/26/16 10:57 Lopressor PO 25 mg BID PAVEL Administration Zolpidem Tartrate 5 mg 10/25/16 21:51 10/25/16 22:36 Ambien PO 5 mg HS PRN Administration Insomnia Protocol - Patient Studies Lab Studies: Lab Studies 10/26/16 10/26/16 10/25/16 Range/Units 06:00 06:00 21:04 WBC 9.0 10.9 D (4.5-11.0) 10^3/ul RBC 5.01 5.13 (3.5-6.1) 10^6/uL Hgb 16.0 16.6 (14.0-18.0) gm/dL Hct 44.7 44.9 (42.0-52.0) % MCV 89.2 87.5 (80.0-105.0) fL MCH 31.9 32.4 (25.0-35.0) pg MCHC 35.8 37.0 (31.0-37.0) g/dl RDW 13.3 12.8 (11.5-14.5) % Plt Count 227 231 (120.0-450.0) 10^3/uL MPV 10.8 10.8 (7.0-11.0) fl Gran % 69.2 H (50.0-68.0) % Lymph % (Auto) 22.4 (22.0-35.0) % [place] % (Auto) 7.5 H (1.0-6.0) % Eos % (Auto) 0.7 L (1.5-5.0) % Baso % (Auto) 0.2 (0.0-3.0) % Gran # 6.22 (1.4-6.5) Lymph # 2.0 (1.2-3.4) [place] # 0.7 H (0.1-0.6) Eos # 0.1 (0.0-0.7) Baso # 0.02 (0.0-2.0) K/mm3 Sodium 139 (132-148) mmol/L Potassium 3.9 (3.6-5.0) mmol/L Chloride 107 (98-107) mmol/L Carbon Dioxide 26 (21-33) mmol/L Anion Gap 10 (10-20) BUN 14 (7-21) mg/dL Creatinine 0.8 (0.5-1.4) mg/dL Est GFR ( Amer) > 60 Est GFR (Non-Af Amer) > 60 Random Glucose 126 H (70-110) mg/dL Calcium 8.2 L (8.4-10.5) mg/dL Magnesium (1.7-2.2) mg/dL 10/25/16 Range/Units 21:04 WBC (4.5-11.0) 10^3/ul RBC (3.5-6.1) 10^6/uL Hgb (14.0-18.0) gm/dL Hct (42.0-52.0) % MCV (80.0-105.0) fL MCH (25.0-35.0) pg MCHC (31.0-37.0) g/dl RDW (11.5-14.5) % Plt Count (120.0-450.0) 10^3/uL MPV (7.0-11.0) fl Gran % (50.0-68.0) % Lymph % (Auto) (22.0-35.0) % [place] % (Auto) (1.0-6.0) % Eos % (Auto) (1.5-5.0) % Baso % (Auto) (0.0-3.0) % Gran # (1.4-6.5) Lymph # (1.2-3.4) [place] # (0.1-0.6) Eos # (0.0-0.7) Baso # (0.0-2.0) K/mm3 Sodium 138 (132-148) mmol/L Potassium 3.5 L (3.6-5.0) mmol/L Chloride 104 (98-107) mmol/L Carbon Dioxide 22 (21-33) mmol/L Anion Gap 16 (10-20) BUN 15 (7-21) mg/dL Creatinine 0.8 (0.5-1.4) mg/dL Est GFR ( Amer) > 60 Est GFR (Non-Af Amer) > 60 Random Glucose 144 H (70-110) mg/dL Calcium 8.4 (8.4-10.5) mg/dL Magnesium 2.1 (1.7-2.2) mg/dL Laboratory Results - last 24 hr 10/25/16 10/25/16 10/26/16 21:04 21:04 06:00 WBC 10.9 D RBC 5.13 Hgb 16.6 Hct 44.9 MCV 87.5 MCH 32.4 MCHC 37.0 RDW 12.8 Plt Count 231 MPV 10.8 Gran % Lymph % (Auto) [place] % (Auto) Eos % (Auto) Baso % (Auto) Gran # Lymph # [place] # Eos # Baso # Sodium 138 139 Potassium 3.5 L 3.9 Chloride 104 107 Carbon Dioxide 22 26 Anion Gap 16 10 BUN 15 14 Creatinine 0.8 0.8 Est GFR ( Amer) > 60 > 60 Est GFR (Non-Af Amer) > 60 > 60 Random Glucose 144 H 126 H Calcium 8.4 8.2 L Magnesium 2.1 10/26/16 06:00 WBC 9.0 RBC 5.01 Hgb 16.0 Hct 44.7 MCV 89.2 MCH 31.9 MCHC 35.8 RDW 13.3 Plt Count 227 MPV 10.8 Gran % 69.2 H Lymph % (Auto) 22.4 [place] % (Auto) 7.5 H Eos % (Auto) 0.7 L Baso % (Auto) 0.2 Gran # 6.22 Lymph # 2.0 [place] # 0.7 H Eos # 0.1 Baso # 0.02 Sodium Potassium Chloride Carbon Dioxide Anion Gap BUN Creatinine Est GFR ( Amer) Est GFR (Non-Af Amer) Random Glucose Calcium Magnesium EKG/Cardiology Studies: Cardiology / EKG Studies 10/25/16 18:53 EKG [ELECTROCARDIOGRAM] Stat Comment: Reason For Exam: CARDIAC ARREST 10/26/16 08:29 EKG [ELECTROCARDIOGRAM] Stat Comment: Reason For Exam: acute mi Addendum Addendum: 10/26/16 15:04 patient was seen, examined and discussed with Dr. Chu at bedside shoulder to shoulder. Her note reflects my exam, assessment and plan, except as below. Meds/ Labs/ONE reviewed. 66 yo male with STEMI, s/p PCI, now on dual AP, integrillin, statins and bb. doing good. Not in respiratory or otherwise distress. Once integrillin drip completed ok to downgrade to tele ccm time 40 min
[2016-10-26] MEDS: Menthol/Methyl Salicylate Ointment(1 oz) TOP SCH (10:00)
--- NOTE | 2016-10-26 10:44 | HP ---
I know the patient very well. He comes to the office and I have seen him in the Atrium at [facility] before that. He is a 66-year-old white male who came in after 2 days on and off of chest pain. At first, he thought it was indigestion after eating pizza. It went away, but when it woke him up in the morning, he knew he was having a heart attack. He called his son, he called 911 and came to the Emergency Room. It started about 2 days ago. He never had this before and he has a lot of chest pain and pressure and heaviness and tightness. PAST MEDICAL HISTORY: Hypertension, blurred vision, anxiety, depression. PAST SURGICAL HISTORY: He has had surgery on his right knee. He has neuropathy of both his legs. FAMILY HISTORY: There is hypertension in the family. He never smoked, no alcohol, no drugs. ALLERGIES: EGGS. He takes amlodipine, Mentax, zonisamide, Klonopin. He used to take Lyrica. He was in mild to moderate distress when he came to the hospital. He was given medication to make him feel better and they called a code heart and he went straight to catheterization lab with Dr. Kiran Jean. REVIEW OF SYSTEMS: No acute vision changes or hearing changes, no sore throat. He has acute chest pain, dyspnea on exertion, chest pressure, chest tightness. It went into his left arm. It was a sharp pain. Some shortness of breath with this, some indigestion and nauseousness. No vomiting, no abdominal pain. He does have chronic leg numbness and pain. No headache, not dizzy. No depression. PHYSICAL EXAMINATION: VITAL SIGNS: He has a 98 temp, 92 pulse, 20 respiratory rate, 139/102 blood pressure, which is quite high for him, and 100% O2 sat on oxygen. HEENT: His head is atraumatic, normocephalic. His extraocular muscles are intact. Pupils equal, reactive to light. Throat is moist, no erythema. NECK: Supple, no JVD. HEART: Regular rate, a little tachy. LUNGS: Decreased breath sounds, but clear to auscultation. No wheezes, no rhonchi, no rales. ABDOMEN: Soft, nontender, positive bowel sounds. No guarding, no rebound, no CVA tenderness. RECTAL: They did a rectal in the Emergency Room, no gross blood. EXTREMITIES: Have no edema. He can move all 4 extremities. SKIN: He is a little bit pale. NEUROLOGIC: He is alert and oriented x 3, comfortable now in the intensive care unit, good eye contact. LYMPHATIC: Thyroid midline. No palpable lymphadenopathy. He had multiple tests. When he came, his potassium was low at 3.2. It is up to 3.9. His sodium is 139, BUN 14, creatinine 0.8, GFR is greater than 60, sugar is 126, calcium is 8.2, AST was 66, ALT was 131. Troponin was 0.22. INR was 0.99. When he came in, his hemoglobin was 18.3. It is now 16 with a 9 white count and 227 platelets. Chest x-ray is pending. He had EKG that showed an acute infarction. He went for cath. He had a 99% LAD. He was stented by Dr. Jean. He is now in the intensive care unit. He is on Ambien, BenGay, Ecotrin, Integrilin drip, Lipitor, Lopressor, Plavix and Protonix. He is feeling much better. He has more energy. He is comfortable. He is here for code heart, coronary artery disease, myocardial infarction, chest pain, hypertension. We will watch him very closely, as per cardiology and continue intensive care unit treatment. Rafael Hand DO cc: [id number] TT: 10/26/2016 10:43:47 en MTDD
--- NOTE | 2016-10-26 12:10 | CARD ---
APPROVED REPORT EKG Measurement Heart [id number] <Conclusion> Normal sinus rhythm Anterior infarct, age undetermined T wave abnormality, consider lateral ischemia Abnormal ECG
--- NOTE | 2016-10-26 12:20 | CARD ---
APPROVED REPORT EKG Measurement Heart [id number] <Conclusion> Sinus rhythm with 1st degree AV block with frequent premature ventricular complexes Anterior infarct, possibly acute Lateral injury pattern ACUTE NE Abnormal ECG
--- NOTE | 2016-10-26 12:20 | CARD ---
APPROVED REPORT EKG Measurement Heart [id number] ND [id number] <Conclusion> Sinus rhythm with occasional premature ventricular complexes Anterior infarct, possibly acute Lateral injury pattern ACUTE HI Abnormal ECG
--- NOTE | 2016-10-26 12:41 | CARD ---
APPROVED REPORT EXAM: Two-dimensional and M-mode echocardiogram with Doppler and color Doppler. 2D DIMENSIONS Left Atrium (2D)4.7 (1.6-4.0cm)IVSd1.2 (0.7-1.1cm) LVDd5.6 (3.9-5.9cm)PWd1.4 (0.7-1.1cm) LVEF (%)45.0 (>50%) M-Mode DIMENSIONS Aortic Root3.50 (2.2-3.7cm)Aortic Cusp Exc.2.40 (1.5-2.0cm) Aortic Valve AoV Peak Cwaewlns170.0cm/Avel Peak GR.7mmHg Mitral Valve MV E Lphmwhkt09.3cm/sMV A Dmwqovli08.1cm/sE/A ratio0.8 TDI Lateral E' Peak V6.53cm/sMedial E' Peak V6.14cm/sE/Lateral E'8.5 E/Medial E'9.0 Pulmonary Valve PV Peak Gorrcyxf89.0cm/sPV Peak Grad.3mmHg Tricuspid Valve TR Peak Hdqgkqgc047mk/sRAP [id number] Peak Gr.19mmHg [id number] LEFT VENTRICLE There is mild concentric left ventricular hypertrophy. Apical hypokinesis RIGHT VENTRICLE The right ventricle is normal size. ATRIA The left atrium is mildly dilated. The right atrium size is normal. AORTIC VALVE The aortic valve is thickened but opens well. MITRAL VALVE The mitral valve is thickened but opens well. TRICUSPID VALVE The tricuspid valve leaflets are thickened , but open well. There is trace to mild tricuspid regurgitation. There is no pulmonary hypertension. PULMONIC VALVE The pulmonic valve is not well visualized. PERICARDIAL EFFUSION There is no pericardial effusion. <Conclusion> LVH Segmental wall motion abn of apex EF 40-45% Dilated LA No pulmonary hypertension
[2016-10-26 19:05] VITALS: RESP 20
[2016-10-27 06:12] VITALS: O2SAT 96
[2016-10-27 08:01] LABS: HEMATOCRIT 43.2 % (42.0-52.0); MEAN CELL VOLUME 89.8 fL (80.0-105.0); MEAN CORPUSCULAR HEMOGLOBIN 31.6 pg (25.0-35.0); MEAN CORPUSCULAR HGB CONC 35.2 g/dl (31.0-37.0); MEAN PLATELET VOLUME 11.4 fl (7.0-11.0); RED CELL DISTRIBUTION WIDTH 13.2 % (11.5-14.5); WHITE BLOOD COUNT 6.7 10^3/ul (4.5-11.0)
[2016-10-27 08:16] LABS: ALB/GLOB RATIO 1.3 (1.1-1.8); ALKALINE PHOSPHATASE 70 U/L (38-133); ALT/SGPT 104 U/L (7-56); AST/SGOT 152 U/L (15-59); BILIRUBIN,TOTAL 1.5 mg/dL (0.2-1.3); BLOOD UREA NITROGEN 16 mg/dL (7-21); CALCIUM 8.5 mg/dL (8.4-10.5); CARBON DIOXIDE 23 mmol/L (21-33); CHLORIDE 111 mmol/L (98-107); GFR AFRICAN-AMERICAN > 60; GLUCOSE,RANDOM 112 mg/dL (70-110); POTASSIUM 3.5 mmol/L (3.6-5.0); SODIUM 143 mmol/L (132-148); TOTAL PROTEIN 6.7 g/dL (5.8-8.3)
--- NOTE | 2016-10-27 08:57 | PN ---
DATE: 10/27/2016 I saw him resting in bed this morning. He told me he slept fairly well last night. He is status pos t acute anterior wall HI, percutaneous catheterization with stent placement in the LAD, which was 99% , high cholesterol, hypertension, CAD, but he is comfortable. No chest pain. He tells me he is jonatan g for a stress test this morning and if he does well, he might be able to be discharged today. He is on Ambien, BenGay, Integrilin which should be finished soon, Lipitor, Lopressor, Pepcid and James vix. He is eating okay. He has good spirits. No more chest pain. PHYSICAL EXAMINATION: VITAL SIGNS: Temp 98.9, 72 pulse, 132/63 blood pressure, 20 respiratory rate, 96% O2 sat on room air . HEENT: His head is atraumatic, normocephalic. HEART: Regular rate. LUNGS: Clear to auscultation. ABDOMEN: Soft. EXTREMITIES: No edema. MUSCULOSKELETAL: He has his regular body aches and leg aches from his chronic fibromyalgia. He has a 9 white count, 16 hemoglobin, 44.7 hematocrit with 227 platelets. He has a 139 sodium, pota ssium is 3.9, BUN is 14, creatinine 0.8, GFR is greater than 60. When he came in, his blood sugar douglas gars was 155, then it was 144, now it is 126. I will order hemoglobin A1c. He has never been a diab etic before and the numbers are coming down. It could all be stress. AST was 66, ALT was 131 two da ys ago. We will see what the door patcher wants to do. Hopefully, he will get the stress test done. I will order a hemoglobin A1c, labs for tomorrow just in case he stays. Otherwise, we will discharge him la ter today if he passes the stress test, as per Dr. Jean. He is here for acute anterior wall myocardial infarction. If he does leave, I will see him next week in my office. Rafael Hand DO cc: [id number] TT: 10/27/2016 08:57:36 Confirmation # [id number] Dictation # [id number] en
[2016-10-27] MEDS: Menthol/Methyl Salicylate Ointment(1 oz) TOP SCH (10:28)
[2016-10-27] MEDS ORDERED: Potassium Chloride 20 mEq/15 ml LIQ UD PO STA (10:37)
--- NOTE | 2016-10-27 11:01 | PN ---
DATE: 10/27/2016 The patient is chest pain free without shortness of breath. PHYSICAL EXAMINATION: VITAL SIGNS: Blood pressure is 132/63. The heart rate is in the 70s. NECK: Negative JVD. LUNGS: Without rales. HEART: Reveals S1, S2. EXTREMITIES: Without edema. The hemoglobin is 15.2. Chemistries: LFTs are mildly elevated, potassium is 3.5. A modified Guero protocol stress test showed baseline PVCs, which did not increase during exercise. There was no angina. The patient was dyspneic and fatigued. IMPRESSION: 1. Status post acute anterior wall myocardial infarction. 2. Status post emergency percutaneous transluminal coronary angioplasty and stent of the left anteri or descending. 3. Hypercholesterolemia. 4. Baseline premature ventricular contractions. Given these findings, the patient will need to continue on aspirin as well as Plavix, beta blockers a nd statin therapy. The patient can be discharged today. I have arranged for the patient to start a supervised exercise program with our cardiac rehab starting next week. Followup and instructions wer e given to the patient in detail. Kiran Jean MD cc: [id number] TT: 10/27/2016 11:00:33 Confirmation # [id number] Dictation # [id number] en
[2016-10-27 13:08] VITALS: BP 140/81; PULSE 76; TEMP 98.5
--- NOTE | 2016-12-19 13:51 | CARD ---
APPROVED REPORT Protocol: MODBRUCE Test Type: Regular Stress Test Attending Physician: Dr. Kiran Jean Referring Physician: Dr. Rafael Hand Test Indications: Chest Pain Height:6 ft 2 in Weight:240lbs Medications: plavix lopressor norvasc Medical History: 66 y/o male hx of chest pain code heart Target HR: 155 bpm Resting ECG: recent ASMI Resting Heart Rate: 95 bpm Resting Blood Pressure: 130/76mmHg Submaximum (85%): 132 bpm POST EXERCISE Reason for Termination: Dyspnea Target HR: No Max HR: 133 bpm 85% of Maximum Predicted HR: 155 bpm Exercise duration: 03:58 min:sec, 4 Stage Exercise capacity: 5.8METs Max Blood Pressure: 136/82mmHg Blood Pressure response to exercise: normal resting BP - appropriate response Heart Rate response to exercise: attenuated secondary to medication Chest Pain: No, none Angina index: 0 Arrhythmia: Yes, ventricular premature beats ST Change: No, none Deviation: 0 mm INTERPRETATION Stress EKG Conclusion: Modified Guero...resting PVC without increase w exercise....no ventricular tachcardia.....no angina Signed by Kiran Jean Electronically Approved: 10/27/2016 11:43:04
== END 2016-10-27 14:58 | disposition home or self-care (01) | DRG 247 ==
LOC: ED 18:26 → CATH 19:25 → CCU 20:23 → 2RNO 10-26 18:53
PROVIDERS: ADMIT Family Medicine; ATTEND Family Medicine
PROC: 027034Z Dilation of Coronary Artery, One Artery with Drug-eluting Intraluminal Device, Percutaneous Approach (ICD-10-PCS; principal; 2016-10-25)
PROC: 4A023N7 Measurement of Cardiac Sampling and Pressure, Left Heart, Percutaneous Approach (ICD-10-PCS; 2016-10-25)
PROC: B2051ZZ Plain Radiography of Left Heart using Low Osmolar Contrast (ICD-10-PCS; 2016-10-25)
PROC: B2011ZZ Plain Radiography of Multiple Coronary Arteries using Low Osmolar Contrast (ICD-10-PCS; 2016-10-25)
PROC: 3E033PZ Introduction of Platelet Inhibitor into Peripheral Vein, Percutaneous Approach (ICD-10-PCS; 2016-10-25)
DX: I21.09 ST elevation (STEMI) myocardial infarction involving other coronary artery of anterior wall (principal); I25.119 Atherosclerotic heart disease of native coronary artery with unspecified angina pectoris; I47.2 Ventricular tachycardia; G62.9 Polyneuropathy, unspecified; D75.1 Secondary polycythemia; E86.0 Dehydration; I10 Essential (primary) hypertension; R04.0 Epistaxis; F32.9 Major depressive disorder, single episode, unspecified; F41.9 Anxiety disorder, unspecified; H53.8 Other visual disturbances; M48.00 Spinal stenosis, site unspecified; M19.90 Unspecified osteoarthritis, unspecified site; E87.6 Hypokalemia; E78.00 Pure hypercholesterolemia, unspecified; I49.3 Ventricular premature depolarization